=== PATIENT | male | born 1960 | race Caucasian/White ===

== ENCOUNTER 2024-04-13 14:38 | Emergency (ER) | payer SELFPAY ==
[2024-04-13 14:45] VITALS: BP 169/87; PULSE 53; RESP 16; TEMP 36.4; O2SAT 97; BMI 35.2
[2024-04-13 15:07] LABS: Add Manual Diff / Slide Review NO; Basophils Absolute Auto 100 /uL (0-100); Basophils Percent Auto 1.3 % (0-2); Eosinophils Absolute Auto 200 /uL (0-450); Eosinophils Percent Auto 2.6 % (2-4); Hemoglobin 15.9 g/dL (13.5-17.5); Lymphocytes Absolute Auto 1400 /uL (1100-4500); Lymphocytes Percent Auto 20.7 % (25-40); Mean Corpuscular HGB Conc 33.9 % (30-36); Mean Corpuscular Hemoglobin 31.2 PG (26-34); Mean Corpuscular Volume 92.2 fL (80-100); Monocytes Absolute Auto 600 /uL (0-900); Monocytes Percent Auto 8.3 % (3-14); Neutrophils Absolute Auto 4600 /uL (1500-7000); Neutrophils Percent Auto 67.1 % (50-75); Platelet Count 181 X10^3/uL (150-400); Red Blood Cell Count 5.09 X10^6/uL (4.5-5.9); Red Cell Distribution Width 13.6 % (11.6-14.8); White Blood Cell Count 6.9 X10^3/uL (4.5-11.0)
[2024-04-13 15:21] LABS: Alanine Aminotransferase 58 IU/L (<50); Albumin 4.3 g/dL (3.5-5.0); Albumin Globulin Ratio 1.6 (1.0-2.8); Alkaline Phosphatase 69 U/L (38-126); Aspartate Aminotransferase 61 IU/L (17-59); BUN Creatinine Ratio 15.5 (6-22); Bilirubin Total 0.7 mg/dL (0.2-1.3); Blood Urea Nitrogen 17 mg/dL (9-20); Calcium 10.3 mg/dL (8.4-10.2); Carbon Dioxide 24 mmol/L (22-32); Chloride 111 mmol/L (98-107); Estimated Glomerular Filt Rate > 60 mL/min (>60); Globulin 2.7 g/dL (1.7-4.1); Glucose 123 mg/dL (80-110); HEMOLYSIS < 15 (0-50); Lipase 540 U/L (23-300); Potassium 4.4 mmol/L (3.4-5.1); Sodium 141 mmol/L (137-145)
[2024-04-13] MEDS: ONDANSETRON 4 MG/2 ML INJ IV (15:26)
[2024-04-13] MEDS: KETOROLAC 30 MG/ML VIAL 15 MG IV (15:26)
--- NOTE | 2024-04-13 15:47 | EKG_ITS ---
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
[2024-04-13 16:17] LABS: Bacteria Urine None Seen; RBC Urine 5-10/HPF (0-5/HPF); Squamous Epithelial Cell Urine None Seen (0-5/HPF); Urine Volume 10mL (spun); WBC Urine 0-1/HPF (0-5/HPF)
[2024-04-13 16:18] LABS: Culture Indicated Urine Cult Not Indicated
--- NOTE | 2024-04-13 16:32 | DI.CT.S_ITS ---
PROCEDURE: CT ABDOMEN PELVIS W CON INDICATIONS: LLQ pain TECHNIQUE: After the administration of intravenous contrast, axial sections acquired from the lung bases to the pubic symphysis. Coronal and sagittal reformats were performed. For radiation dose reduction, the following was used: automated exposure control, adjustment of mA and/or kV according to patient size. COMPARISON: None. FINDINGS: Image quality: Diagnostic. Lower Chest: No significant findings. ABDOMEN: Liver: No solid mass. Liver measures 19.7 cm with steatosis. Gallbladder: No radiopaque gallstones or wall thickening. Biliary ducts: No biliary dilation. Pancreas: No ductal dilation. Spleen: Size is within normal limits. Adrenal Glands: 1.8 cm right adrenal nodule. Kidneys and Ureters: 3 calcifications within the left kidney the largest in the superior pole measuring 6 mm Hounsfield units 993. There is mild moderate hydronephrosis. Proximal ureteral calcification measuring 5 mm Hounsfield units 1178. Right kidney demonstrates 2 nonobstructing calcifications the largest measuring 4 mm. Stomach and Bowel: Normal colonic caliber, without significant wall thickening. Diverticulosis. Peritoneum: No abnormal intraperitoneal fluid. No free air. Ventral Wall: No significant ventral hernia. Abdominal Nodes: No retroperitoneal or mesenteric adenopathy by size criteria. Vessels: Aorta and inferior vena cava are normal in size. PELVIS: Pelvic Organs: Unremarkable. Bladder: No bladder wall thickening, accounting for underdistention. Pelvic Nodes: No enlarged lymph nodes. Miscellaneous: Bilateral fat containing inguinal hernias are seen. Bones: No aggressive osseous abnormality. IMPRESSION: [id number] left hydronephrosis secondary to 5 mm proximal ureteral calculus. Bilateral nonobstructing renal calculi. Diverticulosis. Dictated by: Gia Roman M.D. on 04/13/2024 at 17:37 Approved by: Gia Roman M.D. on 04/13/2024 at 17:40
[2024-04-13] MEDS: MORPHINE 4 MG/ML INJ IV (16:48)
[2024-04-13] MEDS: HYDROMORPHONE 1 MG INJ IV (18:23)
--- NOTE | 2024-04-13 18:27 | ED_ITS ---
HPI - Back Pain/Injury <Yung Canales PA-C - Last Filed: 04/13/24 19:05> General Chief Complaint: Back Pain/Injury Stated Complaint: Back px, thinks kidney stone Time Seen by Provider: 04/13/24 15:59 Source: patient History of Present Illness HPI Narrative: 63-year-old male with past medical history nephrolithiasis presents to the ED with 1 day of left-sided flank pain that wraps around to the left groin. Patient also endorses some looser stools. Patient is unsure if it is a reaction to some food he ate at a restaurant yesterday versus kidney stones. Patient has needed intervention such as lithotripsy in the past for kidney stones. Patient denies fever, chills, chest pain, shortness of breath, vomiting, dysuria, lightheadedness, dizziness, syncope. Patient does endorse some nausea. Related Data Previous Rx's Medication Instructions Recorded ketorolac 10 mg tablet 10 mg PO Q6H PRN pain #20 tabs 04/13/24 ondansetron 4 mg disintegrating 4 mg PO Q8H PRN nausea and 04/13/24 tablet vomiting #14 tabs tamsulosin 0.4 mg capsule 0.4 mg PO BEDTIME #30 caps 04/13/24 Allergies Allergy/AdvReac Type Severity Reaction Status Date / Time No Known Drug Allergies Allergy Verified 04/13/24 14:50 Review of Systems <Yung Canales PA-C - Last Filed: 04/13/24 19:05> Constitutional Constitutional: Denies chills, Denies fatigue, Denies fever(s), Denies frequent falls, Denies lethargy and Denies weakness Eyes Eyes: Denies change in vision, Denies eye discharge, Denies irritation and Denies loss of vision ENT Ears, Nose, Mouth, and Throat: Denies change in voice, Denies dizziness, Denies neck pain, Denies sore throat and Denies throat swelling Cardiovascular Cardiovascular: Denies chest pain, Denies irregular heart rhythm, Denies lightheadedness, Denies palpitations, Denies dyspnea, Denies dyspnea on exertion and Denies orthopnea Respiratory Respiratory: Denies cough, Denies dyspnea, Denies dyspnea on exertion and Denies wheezing Gastrointestinal Gastrointestinal: Reports abdominal pain, Denies change in bowel habits, Denies diarrhea, Reports nausea and Denies vomiting Comments: Left-sided lower abdominal and left-sided flank pain. Nausea Musculoskeletal Musculoskeletal: Denies neck pain and Denies numbness Integumentary/Breasts Skin/Breast: Denies pruritus, Denies erythema, Denies rash and Denies wounds Neurologic Neurologic: Denies behavioral changes, Denies confusion, Denies dizziness, Denies frequent falls, Denies loss of vision, Denies numbness and Denies weakness Psychiatric Psychiatric: Denies anxiety, Denies behavioral changes, Denies confusion, Denies depression, Denies homicidal ideation and Denies suicidal ideation Endocrine Endocrine: Denies fatigue, Denies flushing and Denies palpitations Hematologic/Lymphatic Hematologic/Lymphatic: Denies easy bruising Allergic/Immunologic Allergic/Immunologic: Denies urticaria, Denies throat swelling and Denies wheezing Patient History <Yung Canales PA-C - Last Filed: 04/13/24 19:05> Social History Smoking Status: Never smoker Smoking Status: Never smoker Substance Use Type: does not use Exam <Yung Canales PA-C - Last Filed: 04/13/24 19:05> Narrative Exam Narrative: Const General:?cooperative, healthy appearing and comfortable [facility] Head:?normal to inspection Ears:?hearing grossly normal bilaterally Nose:?external nose normal Face and sinus:?normal facial exam and sinuses nontender Mouth:?oral mucosae normal Throat:?posterior oropharynx normal Eyes General:?appearance normal, both eyes and all related structures Neck Neck:?normal visual inspection and no lymphadenopathy noted Resp Effort & Inspection:?normal respiratory effort Auscultation:?clear to auscultation bilaterally Cardio Rate:?regular rate Rhythm:?regular rhythm GI/ Abdomen is soft, nondistended. Tender to palpation in the left lower quadrant. No CVA tenderness. Neuro General:?patient alert, patient awake and patient oriented x3 Initial Vital Signs Initial Vital Signs: Vital Signs Temperature 97.5 F L 04/13/24 14:45 Pulse Rate 53 L 04/13/24 14:45 Respiratory Rate 16 04/13/24 14:45 Blood Pressure 169/87 H 04/13/24 14:45 Pulse Oximetry 97 04/13/24 14:45 Oxygen Delivery Method Room Air 04/13/24 14:45 <Peyton Kruse MD - Last Filed: 04/22/24 07:21> Initial Vital Signs Initial Vital Signs: Vital Signs Temperature 97.5 F L 04/13/24 14:45 Pulse Rate 53 L 04/13/24 14:45 Respiratory Rate 16 04/13/24 14:45 Blood Pressure 169/87 H 04/13/24 14:45 Pulse Oximetry 97 04/13/24 14:45 Oxygen Delivery Method Room Air 04/13/24 14:45 Course <Yung Canales PA-C - Last Filed: 04/13/24 19:05> Orders Ordered: Discontinued Medications Hydromorphone HCl (Hydromorphone 1 Mg Inj) 1 mg IV NOW ONE Stop: 04/13/24 18:16 Last Admin: 04/13/24 18:23 Dose: 1 mg Documented By: GARFIELD Ketorolac Tromethamine (Ketorolac 30 Mg/Ml Vial) 15 mg IV NOW ONE Stop: 04/13/24 15:10 Last Admin: 04/13/24 15:26 Dose: 15 mg Documented By: BESSIE Morphine Sulfate (Morphine 4 Mg/Ml Inj) 4 mg IV NOW ONE Stop: 04/13/24 16:46 Last Admin: 04/13/24 16:48 Dose: 4 mg Documented By: GARFIELD Ondansetron HCl (Ondansetron 4 Mg/2 Ml Inj) 4 mg IV NOW PRN PRN Reason: Nausea And Vomiting Last Admin: 04/13/24 15:26 Dose: 4 mg Documented By: BESSIE Ondansetron HCl (Ondansetron 4 Mg Odt) 4 mg PO NOW PRN PRN Reason: Nausea And Vomiting Vital Signs Vital signs: Vital Signs - 8 hr 04/13/24 14:45 04/13/24 18:48 Temperature 97.5 F L Pulse Rate 53 L 53 L Respiratory Rate 16 16 Blood Pressure 169/87 H 158/78 H Pulse Oximetry 97 99 Oxygen Delivery Method Room Air <Peyton Kruse MD - Last Filed: 04/22/24 07:21> Orders Ordered: Discontinued Medications Hydromorphone HCl (Hydromorphone 1 Mg Inj) 1 mg IV NOW ONE Stop: 04/13/24 18:16 Last Admin: 04/13/24 18:23 Dose: 1 mg Documented By: GARFIELD Ketorolac Tromethamine (Ketorolac 30 Mg/Ml Vial) 15 mg IV NOW ONE Stop: 04/13/24 15:10 Last Admin: 04/13/24 15:26 Dose: 15 mg Documented By: BESSIE Morphine Sulfate (Morphine 4 Mg/Ml Inj) 4 mg IV NOW ONE Stop: 04/13/24 16:46 Last Admin: 04/13/24 16:48 Dose: 4 mg Documented By: GARFIELD Ondansetron HCl (Ondansetron 4 Mg/2 Ml Inj) 4 mg IV NOW PRN PRN Reason: Nausea And Vomiting Last Admin: 04/13/24 15:26 Dose: 4 mg Documented By: BESSIE Ondansetron HCl (Ondansetron 4 Mg Odt) 4 mg PO NOW PRN PRN Reason: Nausea And Vomiting Vital Signs Vital signs: Vital Signs - 8 hr 04/13/24 14:45 04/13/24 18:48 Temperature 97.5 F L Pulse Rate 53 L 53 L Respiratory Rate 16 16 Blood Pressure 169/87 H 158/78 H Pulse Oximetry 97 99 Oxygen Delivery Method Room Air MDM - Back Pain/Injury <Yung Canales PA-C - Last Filed: 04/13/24 19:05> Lab Data 04/13/24 15:00 04/13/24 15:00 Labs: Lab Results 04/13/24 04/13/24 Range/Units 13:36 15:00 WBC 6.9 (4.5-11.0) X10^3/uL RBC 5.09 (4.5-5.9) X10^6/uL Hgb 15.9 (13.5-17.5) g/dL Hct 47.0 (41-53) % MCV 92.2 (80-100) fL MCH 31.2 (26-34) PG MCHC 33.9 (30-36) % RDW 13.6 (11.6-14.8) % Plt Count 181 (150-400) X10^3/uL Neut % (Auto) 67.1 (50-75) % Lymph % (Auto) 20.7 L (25-40) % [place] % (Auto) 8.3 (3-14) % Eos % (Auto) 2.6 (2-4) % Baso % (Auto) 1.3 (0-2) % Neut # (Auto) 4600 (7307-6636) /uL Lymph # (Auto) 1400 (3286-1869) /uL [place] # (Auto) 600 (0-900) /uL Eos # (Auto) 200 (0-450) /uL Baso # (Auto) 100 (0-100) /uL Sodium 141 (137-145) mmol/L Potassium 4.4 (3.4-5.1) mmol/L Chloride 111 H (98-107) mmol/L Carbon Dioxide 24 (22-32) mmol/L BUN 17 (9-20) mg/dL Creatinine 1.10 (0.66-1.25) mg/dL Estimated GFR > 60 (>60) mL/min BUN/Creatinine Ratio 15.5 (6-22) Glucose 123 H (80-110) mg/dL Calcium 10.3 H (8.4-10.2) mg/dL Total Bilirubin 0.7 (0.2-1.3) mg/dL AST 61 H (17-59) IU/L ALT 58 H (<50) IU/L Alkaline Phosphatase 69 (38-126) U/L Total Protein 7.0 (6.3-8.2) g/dL Albumin 4.3 (3.5-5.0) g/dL Globulin 2.7 (1.7-4.1) g/dL Albumin/Globulin Ratio 1.6 (1.0-2.8) Lipase 540 H (23-300) U/L Urine RBC 5-10/hpf H (0-5/HPF) Urine WBC 0-1/hpf (0-5/HPF) Ur Squamous Epith Cells None seen (0-5/HPF) Urine Bacteria None seen (None) Ur Culture Indicated? Cult not indicated Vol Urine Centrifuged 10ml (spun) Urine Dip Bedside Urine Glucose Negative Bedside Urine Bilirubin - Negative Bedside Urine Ketone - Negative Urine Specific [place] 1.020 Bedside Urine Occult Blood +++ Bedside Urine pH 6.0 Bedside Urine Protein - Negative Bedside Urine Urobilinogen - Negative Bedside Urine Nitrite - Negative Bedside Urine Leukocytes - Negative Esterase MDM Narrative Medical decision making narrative: 63-year-old male with past medical history nephrolithiasis presents to the ED with 1 day of left-sided flank pain that wraps around to the left groin. Concern for kidney stone versus diverticulitis versus UTI versus other intra- abdominal pathology versus other. Obtained labs, UA, CT abdomen pelvis. Labs unremarkable. UA positive for RBC, negative for infection. CT abdomen pelvis shows [id number] left hydronephrosis secondary to 5 mm proximal ureteral calculus. There are also bilateral nonobstructing renal calculi. Patient was given Toradol, Zofran, morphine, Dilaudid for pain control. Discussed findings with patient. Explained that a 5 mm obstructing stone has a 60% of passing spontaneously, and that he is being prescribed medications for pain, nausea trial stone passage. Prescribed Percocet, Zofran, tamsulosin. Recommend follow-up with Urology as soon as possible. ED return precautions discussed patient. Patient verbalized understanding. Medical records reviewed: Yes Patient requested ketorolac p.o. instead of Percocet, since Percocet makes him nauseous. Ketorolac sent to the pharmacy. <Peyton Kruse MD - Last Filed: 04/22/24 07:21> Lab Data Labs: Lab Results 04/13/24 04/13/24 Range/Units 13:36 15:00 WBC 6.9 (4.5-11.0) X10^3/uL RBC 5.09 (4.5-5.9) X10^6/uL Hgb 15.9 (13.5-17.5) g/dL Hct 47.0 (41-53) % MCV 92.2 (80-100) fL MCH 31.2 (26-34) PG MCHC 33.9 (30-36) % RDW 13.6 (11.6-14.8) % Plt Count 181 (150-400) X10^3/uL Neut % (Auto) 67.1 (50-75) % Lymph % (Auto) 20.7 L (25-40) % [place] % (Auto) 8.3 (3-14) % Eos % (Auto) 2.6 (2-4) % Baso % (Auto) 1.3 (0-2) % Neut # (Auto) 4600 (9639-8542) /uL Lymph # (Auto) 1400 (7266-5517) /uL [place] # (Auto) 600 (0-900) /uL Eos # (Auto) 200 (0-450) /uL Baso # (Auto) 100 (0-100) /uL Sodium 141 (137-145) mmol/L Potassium 4.4 (3.4-5.1) mmol/L Chloride 111 H (98-107) mmol/L Carbon Dioxide 24 (22-32) mmol/L BUN 17 (9-20) mg/dL Creatinine 1.10 (0.66-1.25) mg/dL Estimated GFR > 60 (>60) mL/min BUN/Creatinine Ratio 15.5 (6-22) Glucose 123 H (80-110) mg/dL Calcium 10.3 H (8.4-10.2) mg/dL Total Bilirubin 0.7 (0.2-1.3) mg/dL AST 61 H (17-59) IU/L ALT 58 H (<50) IU/L Alkaline Phosphatase 69 (38-126) U/L Total Protein 7.0 (6.3-8.2) g/dL Albumin 4.3 (3.5-5.0) g/dL Globulin 2.7 (1.7-4.1) g/dL Albumin/Globulin Ratio 1.6 (1.0-2.8) Lipase 540 H (23-300) U/L Urine RBC 5-10/hpf H (0-5/HPF) Urine WBC 0-1/hpf (0-5/HPF) Ur Squamous Epith Cells None seen (0-5/HPF) Urine Bacteria None seen (None) Ur Culture Indicated? Cult not indicated Vol Urine Centrifuged 10ml (spun) Urine Dip Bedside Urine Glucose Negative Bedside Urine Bilirubin - Negative Bedside Urine Ketone - Negative Urine Specific [place] 1.020 Bedside Urine Occult Blood +++ Bedside Urine pH 6.0 Bedside Urine Protein - Negative Bedside Urine Urobilinogen - Negative Bedside Urine Nitrite - Negative Bedside Urine Leukocytes - Negative Esterase Discharge Plan Departure Patient Disposition: Home Clinical Impression: Kidney stone Instructions: DI for Kidney Stones Activity Restrictions/Additional Instructions: You were evaluated in the ED today for left-sided flank and abdominal pain. Your urine and labs were normal. The CT scan did show a 5 mm obstructing stone that is causing your symptoms. There is a good chance that this stone will spontaneously pass. You are being prescribed nausea, pain medication as well as tamsulosin to promote stone passage. Please follow-up with [facility] at [phone] for further evaluation. Return to the ED if you have worsening symptoms. Prescriptions: New ondansetron 4 mg tablet,disintegrating 4 mg PO Q8H PRN (Reason: nausea and vomiting) Qty: 14 0RF tamsulosin 0.4 mg capsule 0.4 mg PO BEDTIME Qty: 30 0RF ketorolac 10 mg tablet 10 mg PO Q6H PRN (Reason: pain) Qty: 20 0RF Rx Instructions: maximum total duration of 5 days from all oral, intranasal, or parenteral formulations Referrals: Miscellaneous,Doctor, [Primary Care Provider] - Stand Alone Forms: Patient Portal/API/Survey ED Sign-out <Peyton Kruse MD - Last Filed: 04/22/24 07:21> Cosign ED Attending Cosignature Attestation: I was immediately available in the department for consultation throughout this patient's visit. Peyton Kruse MD
[2024-04-13 18:48] VITALS: BP 158/78; PULSE 53; RESP 16; O2SAT 99
--- NOTE | 2024-04-13 21:08 | PC.NURSE ---
Patient called back for assistance in filling Ketorlac. [place] chart says it was faxed but all others show transmission. RX called into [facility] for patient
== END 2024-04-13 18:50 | disposition home or self-care (01) ==
PROVIDERS: Emergency Medicine; Emergency Provider Student in an Organized Health Care Education/Training Program
DX: N20.0 Calculus of kidney (principal); Z87.442 Personal history of urinary calculi; R11.0 Nausea
CPT/HCPCS: 74177; 80053; 81003; 81015; 83690; 85025; 93005; 93010; 96374; 96375; 99283; 99284; J1171; J1885; J2270; J2405; Q9967